=== PATIENT | male | born 1940 | race Caucasian/White ===

== ENCOUNTER 2019-02-19 09:06 | Outpatient (CLI) | payer OTHER ==
[~2019-02-19 09:06] MED LIST: ADULT ASPIRIN81 MG PO; DIOVAN HCT 160-1 TAB PO; JANUMET 50-1,1 UDTAB PO
== END 2019-02-19 09:15 | disposition home or self-care (01) ==
LOC: SONOGRAMA 09:06
DX: R59.0 Localized enlarged lymph nodes (principal)

== ENCOUNTER 2019-03-24 07:49 | Outpatient (CLI) | payer OTHER | END 2019-03-24 07:53 | disposition home or self-care (01) | LOC: SONOGRAMA 07:49 | DX: R59.1 Generalized enlarged lymph nodes (principal) ==

== ENCOUNTER 2019-04-02 12:41 | Outpatient (CLI) | payer OTHER | END 2019-04-02 12:46 | disposition home or self-care (01) | LOC: LAB 12:41 | DX: C91.12 Chronic lymphocytic leukemia of B-cell type in relapse (principal) ==

== ENCOUNTER 2019-04-25 08:39 | Outpatient (CLI) | payer OTHER | END 2019-04-25 08:42 | disposition home or self-care (01) | LOC: NUCLEAR 08:39 | DX: C91.10 Chronic lymphocytic leukemia of B-cell type not having achieved remission (principal) | CPT/HCPCS: 78816; A9552 ==

== ENCOUNTER 2019-05-19 10:29 | Inpatient (IN) | payer OTHER ==
[~2019-05-19] VITALS: Ht 162.6 cm; Wt 59.0 kg
[2019-05-28] MEDS ORDERED: JANUMET 50-1,01 EACH PO (09:00)
[2019-05-28] MEDS ORDERED: CLONAZEPAM0.5 MG PO (09:01)
[2019-05-28] MEDS ORDERED: PROTONIX20 MG PO (09:01)
[2019-05-28] MEDS ORDERED: AMILODIPINE PO (09:01)
[2019-05-28] MEDS ORDERED: SERTRALINE HCL25 MG PO (09:04)
[2019-05-28] MEDS ORDERED: TRAZODONE HCL150 MG PO (09:05)
[2019-06-04] MEDS ORDERED: NORVASC2.5 M1 PO (07:21)
[2019-06-07] MEDS ORDERED: OXYC1TAB9 PO (15:22)
[2019-06-07] MEDS ORDERED: HYOSCYAMINE0.125 M1 SL (15:23)
== END 2019-06-07 16:19 | disposition home or self-care (01) | DRG 330 ==
LOC: O/R 06-04 05:30 → SURG 06-04 05:30 → SURH 06-05 20:07
PROVIDERS: ADMIT Colon & Rectal Surgery
PROC: 07TB4ZZ Resection of Mesenteric Lymphatic, Percutaneous Endoscopic Approach (ICD-10-PCS; 2019-06-04)
PROC: 0DTU4ZZ Resection of Omentum, Percutaneous Endoscopic Approach (ICD-10-PCS; 2019-06-04)
PROC: 0DTF4ZZ Resection of Right Large Intestine, Percutaneous Endoscopic Approach (ICD-10-PCS; principal; 2019-06-04 12:15)
DX: D12.2 Benign neoplasm of ascending colon (principal); C81.13 Nodular sclerosis Hodgkin lymphoma, intra-abdominal lymph nodes; I25.10 Atherosclerotic heart disease of native coronary artery without angina pectoris; I11.9 Hypertensive heart disease without heart failure; D50.0 Iron deficiency anemia secondary to blood loss (chronic); T78.49XA Other allergy, initial encounter

== ENCOUNTER 2019-05-21 07:29 | Outpatient (CLI) | payer OTHER | END 2019-05-21 07:36 | disposition home or self-care (01) | LOC: LAB 07:29 | DX: K64.1 Second degree hemorrhoids (principal); K92.1 Melena; D12.2 Benign neoplasm of ascending colon; C18.2 Malignant neoplasm of ascending colon; Z86.010 Personal history of colon polyps ==

== ENCOUNTER 2019-10-10 08:23 | Outpatient (CLI) | payer OTHER ==
[~2019-10-10 08:23] MED LIST changes: +AMILODIPINE PO; +CLONAZEPAM0.5 MG PO; +HYOSCYAMINE0.125 M1 SL; +JANUMET 50-1,01 EACH PO; +NORVASC2.5 M1 PO; +OXYC1TAB9 PO; +PROTONIX20 MG PO; +SERTRALINE HCL25 MG PO; +TRAZODONE HCL150 MG PO
== END 2019-10-10 08:26 | disposition home or self-care (01) ==
LOC: NUCLEAR 08:23
PROVIDERS: ATTEND Internal Medicine Hematology & Oncology
DX: C91.12 Chronic lymphocytic leukemia of B-cell type in relapse (principal)
CPT/HCPCS: 78815; A9552